=== PATIENT | female | born 1965 | race Caucasian/White ===

== ENCOUNTER 2018-10-14 22:33 | Emergency (ER) | payer MEDICARE, MEDICAID ==
[2018-10-14] MEDS ORDERED: RINGERS SOLUTION,LACTATED 1,000 ML IV ONE (23:24)
[2018-10-14] MEDS ORDERED: MORPHINE SULFATE 10 MG/ML INJ IV PRN (23:24)
[2018-10-14] MEDS ORDERED: KETOROLAC TROMETHAMINE INJ/PF 30 MG/1 ML SDV IV ONE (23:24)
--- NOTE | 2018-10-14 23:26 | ER Document Report ---
ED General - General Chief Complaint: Low Back Pain Stated Complaint: LEFT FLANK PAIN Time Seen by Provider: 10/14/18 22:40 Notes: Patient is a 53-year-old female with a past medical history of hypertension, hyperlipidemia, anxiety, chronic low back pain who presents with left flank pain that has been ongoing for the past 24 hours. The patient describes the pain as being a dull, throbbing, constant pain. Nothing seems to improve or worsen his pain. He denies a history of similar pain in the past. She has associated urinary frequency and pain with urination. She has not had fever or constitutional symptoms. She denies a history of similar symptoms in the past. She has not seen her primary physician regarding today's concerns. TRAVEL OUTSIDE OF THE [place] IN LAST 30 DAYS: No - Related Data Allergies/Adverse Reactions: rabeprazole sodium [From Aciphex] Allergy (Verified 11/29/11 16:59) tramadol HCl [From Ultram] Allergy (Verified 11/29/11 16:59) Past Medical History - General Information source: Patient - Social History Smoking Status: Never Smoker Frequency of alcohol use: None Drug Abuse: None Lives with: Spouse/Significant other Family History: Reviewed & Not Pertinent - Past Medical History Cardiac Medical History: Reports: Hx Hypercholesterolemia GI Medical History: Reports: Hx Gastroesophageal Reflux Disease Past Surgical History: Reports: Hx Appendectomy, Hx Orthopedic Surgery - back - Immunizations Hx Diphtheria, Pertussis, Tetanus Vaccination: - unknown Review of Systems - Review of Systems Notes: Constitutional: Negative for fever. HENT: Negative for sore throat. Eyes: Negative for visual changes. Cardiovascular: Negative for chest pain. Respiratory: Negative for shortness of breath. Gastrointestinal: Positive for nausea Genitourinary: Negative for dysuria. Musculoskeletal: Positive for left flank pain Skin: Negative for rash. Neurological: Negative for headaches, weakness or numbness. 10 point ROS negative except as marked above and in HPI. Physical Exam - Vital signs Vitals: Temp Pulse Resp BP Pulse Ox 98.5 F 105 H 19 137/66 H 98 10/14/18 22:33 10/14/18 22:33 10/14/18 22:33 10/14/18 22:33 10/14/18 22:33 Interpretation: Tachycardic Notes: PHYSICAL EXAMINATION: GENERAL: Appears uncomfortable but in no acute distress HEAD: Atraumatic, normocephalic. EYES: Pupils equal round and reactive to light, extraocular movements intact, sclera anicteric, conjunctiva are normal. ENT: nares patent, oropharynx clear without exudates. Moderately dry mucous membranes. NECK: Normal range of motion, supple without lymphadenopathy LUNGS: Breath sounds clear to auscultation bilaterally and equal. No wheezes rales or rhonchi. HEART: Regular tachycardia without murmurs ABDOMEN: Soft, nontender, normoactive bowel sounds. No guarding, no rebound. No masses appreciated. . Back: No midline spinal tenderness, step-offs or deformities. Focal left flank tenderness on palpation. EXTREMITIES: Normal range of motion, no pitting or edema. No cyanosis. NEUROLOGICAL: No focal neurological deficits. Moves all extremities spontaneously and on command. PSYCH: Moderately anxious SKIN: Warm, Dry, normal turgor, no rashes or lesions noted. Course - Re-evaluation Re-evalutation: 10/14/18 23:25 Patient presents with 24 hours of progressively worsening left flank pain with associated dysuria. On exam she appears quite uncomfortable, is focal left CVA tenderness. She has had nausea but no vomiting at home. Does appear clinically dehydrated. Initial vitals are notable for tachycardia but otherwise unremarkable. Patient has a long-standing history of chronic low back pain and states this does not feel similar. Differential includes nephrolithiasis, pyelonephritis, less likely acute intra-abdominal pathology given the absence of focal abdominal pain on exam. Will proceed with labs, symptomatic control and reassess the patient. 10/15/18 01:08 CT scan of the abdomen pelvis unremarkable with the exception of a left renal cyst. Urinalysis does show findings consistent with a urinary tract infection. A culture has been sent and patient has been started on is otherwise unremarkable. Repeat abdominal exam remains benign. Continues to have some mild left flank tenderness but no midline back tenderness. No back pain red flags. No neurologic deficits. At this time will discharge with return precautions and follow-up recommendations. Verbal discharge instructions given a the bedside and opportunity for questions given. Medication warnings reviewed. Patient is in agreement with this plan and has verbalized understanding of return precautions and the need for primary care follow-up in the next 24-72 hours. - Vital Signs Vital signs: Temp Pulse Resp BP Pulse Ox 98.5 F 105 H 19 137/66 H 98 12/02/18 22:33 10/14/18 22:33 10/14/18 22:33 10/14/18 22:33 10/14/18 22:33 - Laboratory Result Diagrams: 10/14/18 23:45 10/14/18 23:45 Laboratory results interpreted by me: 10/14/18 10/14/18 10/14/18 23:27 23:45 23:45 WBC 12.5 H RDW 15.5 H Glucose 115 H AST 11 L Alkaline Phosphatase 180 H Urine Blood MODERATE H Ur Leukocyte Esterase SMALL H - Diagnostic Test Radiology reviewed: Reports reviewed Discharge - Discharge Clinical Impression: Left flank pain, Dysuria, Nausea Urinary tract infection Qualifiers: Urinary tract infection type: acute pyelonephritis Qualified Code(s): N10 - Acute pyelonephritis Condition: Good Disposition: HOME, SELF-CARE Additional Instructions: You were seen today for left flank pain. Your urine does suggest an infection. Shows a left kidney cyst but is otherwise unremarkable. The remainder of your labs are otherwise normal. Your being started on an antibiotic called cephalexin to treat the infection. Take until completed. Please follow-up with your primary care doctor tomorrow. Return if you have worsening pain, become unable to tolerate fluids due to vomiting, develop a fever of greater than 100.4 F, pass out, have weakness or numbness, or have any other symptoms that are of concern to you. For your pain: Take ibuprofen 600 mg and acetaminophen 1000 mg every 6 hours together as needed for pain. Prescriptions: Cephalexin Monohydrate [Keflex 500 mg Capsule] 500 mg PO Q6H 7 Days capsule Referrals: LOCAL,NO [Primary Care Provider] - Follow up as needed
[2018-10-14 23:44] LABS: APPEARANCE,URINE SLIGHTLY-CLOUDY; BILIRUBIN,URINE NEGATIVE (NEGATIVE); COLOR,URINE YELLOW; GLUCOSE, URINE NEGATIVE (NEGATIVE); KETONES,URINE NEGATIVE (NEGATIVE); LEUKOCYTE ESTERASE,URINE SMALL (NEGATIVE); NITRITE,URINE NEGATIVE (NEGATIVE); PROTEIN,URINE NEGATIVE (NEGATIVE); URINE SPECIFIC GRAVITY 1.012; UROBILINOGEN,URINE NEGATIVE mg/dL (<2.0)
[2018-10-15 00:03] LABS: ABSOLUTE BASOPHILS # (AUTO) 0.1 10^3/uL (0.0-0.2); ABSOLUTE EOSINOPHILS # (AUTO) 0.2 10^3/uL (0.0-0.6); ABSOLUTE LYMPHOCYTES (AUTO) 3.4 10^3/uL (0.5-4.7); ABSOLUTE MONOCYTES (AUTO) 0.8 10^3/uL (0.1-1.4); ABSOLUTE NEUT (AUTO) 8.1 10^3/uL (1.7-8.2); BASOPHILS % (AUTO) 0.6 % (0-2); EOSINOPHILS % (AUTO) 1.6 % (0-6); HEMATOCRIT 43.1 % (36.0-47.0); HEMOGLOBIN 14.7 g/dL (12.0-15.5); LYMPHOCYTES % (AUTO) 27.3 % (13-45); MEAN CORPUSCULAR HEMOGLOBIN 31.4 pg (27.0-33.4); MEAN CORPUSCULAR HGB CONC 34.2 g/dL (32.0-36.0); MEAN CORPUSCULAR VOLUME 92 fl (80-97); PLATELET COUNT 300 10^3/uL (150-450); RED BLOOD COUNT 4.68 10^6/uL (3.72-5.28); RED CELL DISTRIBUTION WIDTH 15.5 % (11.5-14.0); SEGMENTED NEUTROPHILS % (AUTO) 64.5 % (42-78); TOTAL CELLS COUNTED % (AUTO) 100 %; WHITE BLOOD COUNT 12.5 10^3/uL (4.0-10.5)
[2018-10-15 00:17] LABS: ALANINE AMINOTRANSFERASE 11 U/L (9-52); ALBUMIN 4.2 g/dL (3.5-5.0); ALKALINE PHOSPHATASE 180 U/L (38-126); ANION GAP 13 (5-19); ASPARTATE AMINO TRANSFERASE 11 U/L (14-36); BILIRUBIN,DIRECT 0.2 mg/dL (0.0-0.4); BILIRUBIN,TOTAL 0.2 mg/dL (0.2-1.3); BLOOD UREA NITROGEN 14 mg/dL (7-20); CALCIUM 9.9 mg/dL (8.4-10.2); CARBON DIOXIDE 23 mmol/L (22-30); CHLORIDE 106 mmol/L (98-107); GLUCOSE 115 mg/dL (75-110); POTASSIUM 4.8 mmol/L (3.6-5.0); SODIUM 141.5 mmol/L (137-145); TOTAL PROTEIN 7.3 g/dL (6.3-8.2)
--- NOTE | 2018-10-15 01:01 | RADIOLOGY REPORT (SQ) ---
EXAM DESCRIPTION: CT ABDOMEN PELVIS WITH IV CONTRAST COMPLETED DATE/TME: 10/15/2018 00:09 CLINICAL HISTORY: 53 years, Female, left flank pain COMPARISON: None. TECHNIQUE: 436 Images stored on PACS. All CT scanners at this facility use dose modulation, iterative reconstruction, and/or weight based dosing when appropriate to reduce radiation dose to as low as reasonably achievable (ALARA). [facility]: Dose Right [facility]: CareDose [facility]: Dose Right [facility]: Teradose 4D [facility]: Gipis LIMITATIONS: None. FINDINGS: Limited evaluation of the lung bases is unremarkable. Osseous structures are grossly intact. Fatty infiltrative change to the liver. The spleen, adrenal glands, pancreas, right kidney are unremarkable. 11 mm left renal cyst incidentally noted. The gallbladder is present. Abundant stool in the colon. No gross evidence for bowel obstruction. Mild atheromatous changes. The appendix is not well seen. No pericecal inflammation to suggest acute appendicitis. No free air or free fluid. IMPRESSION: Negative for acute intra-abdominal/pelvic process. Fatty infiltrative change to the liver. 11 mm left renal cyst. TECHNICAL DOCUMENTATION: Quality ID # [id number]: Final reports with documentation of one or more dose reduction techniques (e.g., Automated exposure control, adjustment of the mA and/or kV according to patient size, use of iterative reconstruction technique) copyright 2011 [employer]- All Rights Reserved
[2018-10-15] MEDS ORDERED: LIDOCAINE 5% (700 MG) TRANSDERMAL ADH..PATCH TP ONE (01:04)
[2018-10-15] MEDS ORDERED: CEPHALEXIN 500 MG CAPSULE PO ONE (01:04)
[2018-10-15 01:40] VITALS: BP 114/67
== END 2018-10-15 01:41 | disposition home or self-care (01) ==
LOC: ER 22:33
DX: N10 Acute pyelonephritis (principal); M54.5 Low back pain; R10.9 Unspecified abdominal pain; I10 Essential (primary) hypertension; E78.5 Hyperlipidemia, unspecified; F41.9 Anxiety disorder, unspecified; E78.00 Pure hypercholesterolemia, unspecified
CPT/HCPCS: 99284; 96361; 96374; 36415; 87086; 85025; 87088; 80053; 81001; 87186; 74177; A9270; J1885; J7120